=== PATIENT | female | born 1940 | race Caucasian/White ===

== ENCOUNTER → 2024-08-21 07:25 | Outpatient (REF) | payer MEDICARE, BC, SELFPAY ==
[2024-08-21 08:45] LABS: % Basophils 0.2 % (0-2); % Eosinophils 4.1 % (0-6); % Immature Granulocytes 0.3 % (0-0.5); % Monocytes 7.4 % (1.7-9.3); Absolute Eosinophils 0.4 10^3/uL (0-0.7); Absolute Lymphocytes 1.8 10^3/uL (1.2-3.4); Absolute Monocytes 0.7 10^3/uL (0.1-0.6); Absolute Neutrophils 6.5 10^3/uL (1.4-6.5); Hematocrit 37.4 % (37.0-47.0); Hemoglobin 12.3 g/dL (12.0-16.0); Mean Corp Hgb Conc. 32.9 g/dL (33.0-37.0); Mean Corpuscular Hgb 29.6 pg (27.0-31.0); Mean Corpuscular Volume 90.1 fL (81.0-99.0); Mean Platelet Volume 11.6 fL (7.4-10.4); Nucleated Red Blood Cells % 0 %; Platelet Count 222 10^3/uL (130-400); Red Blood Cell Count 4.15 10^6/uL (4.20-5.40); Red Cell Dist. Width 13.7 % (11.5-14.5); White Blood Cell Count 9.3 10^3/uL (4.8-10.8)
[2024-08-21 10:33] LABS: ALT (SGPT) 14 U/L (0-35); AST (SGOT) 27 U/L (14-36); Albumin 4.4 g/dl (3.5-5.0); Alkaline Phosphatase 114 U/L (38-126); Blood Urea Nitrogen 38 mg/dl (7-17); Calcium 10.2 mg/dl (8.4-10.2); Carbon Dioxide 26 mmol/L (22-30); Chloride 101 mmol/L (98-107); Glucose 83 mg/dl (70-99); HDL Cholesterol 78 mg/dl; LDL Cholesterol, Calculated 116 mg/dl; Potassium 4.5 mmol/L (3.5-5.1); Sodium 142 mmol/L (135-145); Total Bilirubin 0.8 mg/dl (0.2-1.3); Total Cholesterol 210 mg/dl (50-199); Total Protein 7.1 g/dl (6.3-8.2); Triglyceride 82 mg/dl (10-149); Very Low Density Lipoprotein 16 mg/dl (0-30); eGFR 40.55
== END ==
LOC: REG 07:25
PROVIDERS: ATTENDING PHYSICIAN Family Medicine
DX: Z00.00 Encounter for general adult medical examination without abnormal findings (principal); Z79.899 Other long term (current) drug therapy; Z79.01 Long term (current) use of anticoagulants
CPT/HCPCS: 36415; 80053; 80061; 85025

== ENCOUNTER 2024-10-04 16:09 | Inpatient (IN) | payer MEDICARE, BC, SELFPAY ==
[2024-10-04 10:59] VITALS: BP 175/97
[2024-10-04 11:00] VITALS: BP 142/81
--- NOTE | 2024-10-04 13:13 | ED.GENMED ---
History of Present Illness
General
Chief Complaint: Fall
Source: patient
Time Seen by Provider: 10/04/24 12:48
History of Present Illness
History of Present Illness:
83-year-old female with past medical history of hypertension presenting to the emergency department for evaluation after she was in the [employer] parking lot when she excellently stumbled falling onto the left side of her body injuring her
left elbow and left lower extremity. Patient states that initially it was only her left foot that hurt her but while she has been in the ER her left hip and knee have started hurting as well. Patient ambulates with a cane for stability and lives
on her own in a two-story house but states she has everything she needs on 1 floor. Patient denies any use of anticoagulants. Denies any head injury, loss consciousness, headache. Did not take thing for pain prior to arrival and is currently
declining anything for pain as well.
Past History
Past History
ED Past Medical History: HTN
ED Past Surgical History: None
Social History
Tobacco: Non-smoker
Alcohol: None
Drug: None
Personal:
Living: alone
Review of Systems
Review of Systems
All Other Systems: ROS reviewed and negative except as documented in HPI and ROS
Phy Exam
Physical Exam
Physical Exam:
GENERAL: Alert , in no apparent distress
EYE: clear conjunctiva b/l
HEAD: NCAT
ENT: o/p clr, mmm.
CARDIAC: Regular rate and rhythm .
LUNGS: Clear breath sounds bilaterally, no acute respiratory distress, no wheezes/rales/rhonchi
ABDOMEN: Soft, without focal tenderness, no r/g, no cvat
NEUROLOGICAL: Alert and oriented
SKIN: Warm and dry, small skin tear over the olecranon without any active bleeding of the left elbow
MUSCULOSKELETAL:LLE: No obvious deformity, erythema, edema, ecchymosis, abrasions or lacerations. Patient has tenderness diffusely to the proximal left hip/femur as well as knee. No focal bony tenderness over the foot or ankle. Extremities
otherwise warm well-perfused and neurovascularly intact. Patient having difficulty performing range of motion at the left hip and knee.
PSYCH: Normal and appropriate interaction.
Scores
Heart Failure Risk
Heart Failure Risk Score: Not Applicable
Heart Score for Chest Pain Patients
STEMI patient?: Not applicable
Withdrawal Assessment of Alcohol
Withdrawal Assessment Completed?: Not applicable
Course
Orders/Labs/Results
Orders:
Orders
10/04/24 11:04
Foot, Left 3 View [CR Foot - Left Min 3 Views] Urgent
Comment:
Reason For Exam: fall
10/04/24 13:01
CR Hip - LT w/wo Pel 2-3 Vw* Urgent
Comment:
Reason For Exam: fall, pain
Include a pelvis x-ray?: Yes
CR Knee - Left 4 Or More View* Urgent
Comment:
Reason For Exam: fall, pain
10/04/24 14:34
CR Femur - Left Min 2 Vw Urgent
Comment:
Reason For Exam: fall, known prox fx
10/04/24 14:48
Type+Screen Urgent
Basic Metabolic Panel Urgent
Complete Blood Count/With Diff Urgent
PTT Urgent
Prothrombin Time Urgent
10/04/24 14:51
Ibuprofen [Motrin] 600 mg PO NOW STA
10/04/24 14:58
Ketorolac [Toradol] 30 mg IV NOW STA
10/04/24 15:42
Admit/Transfer Patient As Directed
Co-Sign Provider:
Level of Care: Inpatient admission
Assign to:: Medical/Surgical
Physician / Group: [email or web address]
Diagnosis: Closed intertrochanteric fracture of left hip
Reason for Hospitalization: Closed intertrochanteric fracture of left hip
Expected length of stay greater than two midnights?: Yes
ELOS- Estimated Length of Stay in days: 3
I certify the patient meets the requirements for IP care: Yes
10/04/24 15:43
Code Status As Directed
Resuscitation Status: Full Code
10/04/24 15:58
ABO2 Urgent
BBK Wristband Number:
Associate notified that ABO2 has been ordered: [id number]
Date: 10/04/24
Time: 15:03
Clerk Rating ID: [id number]
10/04/24 17:15
Acetaminophen [Tylenol] 650 mg PO Q4HWA
Magnesium Hydroxide [Milk of Magnesia] 30 ml PO DAILYPRN PRN
Oxycodone [Roxicodone] 5 mg PO Q4HPRN PRN
Tamsulosin [Flomax] 0.4 mg PO DAILYPRN PRN
10/04/24 17:15
Activity As Directed
Activity Level: With Assistance
Bladder Scan As Directed
Follow Bladder Retention/Intermittent Cath Algorithm?: Yes
PRN if no void in __ hours: 6
Comment: if not voiding 6 hrs upon arrival to floor, bladder scan & follow algorithm
Intake/ Output As Directed
Frequency: Per unit guidelines
Pneumatic Compression Sleeves As Directed
Type: Knee high
Straight Cath As Directed
Frequency: Per Retention Algorithm
Additional Instructions: straight cath as needed per acute urinary retention algorithm for 24 hrs
Additional Instructions: for bladder scan greater than 400 mL
Vital Signs As Directed
Frequency: Per unit guidelines
DX Deep Vein Thrombosis Video Routine
10/04/24 20:00
Docusate Sodium [Colace] 100 mg PO BID
Sennosides [Senokot] 17.2 mg PO BID
10/04/24 22:00
Candesartan Cilexetil [Atacand] 32 mg PO HS
Abnormal Lab Results
10/04/24
14:48
WBC 20.6 H 10^3/uL
(4.8-10.8)
RBC 3.84 L 10^6/uL
(4.20-5.40)
Hgb 11.4 L g/dL
(12.0-16.0)
Hct 34.1 L %
(37.0-47.0)
MPV 11.4 H fL
(7.4-10.4)
Abs Immat Gran (auto) 0.1 H 10^3/uL
(0-0.05)
Absolute Neuts (auto) 19.0 H 10^3/uL
(1.4-6.5)
Absolute Lymphs (auto) 0.5 L 10^3/uL
(1.2-3.4)
Absolute Monos (auto) 1.0 H 10^3/uL
(0.1-0.6)
Neutrophils % 92.1 H %
(42.2-75.2)
Lymphocytes % 2.6 L %
(20.5-51.1)
BUN 42 H mg/dl
(7-17)
Creatinine 1.2 H mg/dL
(0.6-1.0)
Glucose 113 H mg/dl
(70-99)
Crossmatch IS Only See Detail
10/04/24 14:48
10/04/24 14:48
Vital Signs
Initial and Last Documented VS:
Initial Vital Signs
Temp Pulse Resp BP Pulse Ox
98.1 F 109 16 175/97 98
10/04/24 10:59 10/04/24 10:59 10/04/24 10:59 10/04/24 10:59 10/04/24 10:59
Last Documented Vital Signs
Temp Pulse Resp BP Pulse Ox
99.4 F 102 18 161/85 97
10/07/24 12:46 10/07/24 12:46 10/07/24 12:46 10/07/24 12:46 10/07/24 12:46
MDM/Problems Addressed
Differential Diagnosis Includes:
Accidental slip and fall, no symptoms to suggest syncope. Fracture, contusion, sprain
MDM/Problems Addressed:
83-year-old female presenting to the ER for evaluation following accidental slip and fall resulting in left lower extremity pain. Patient initially noted pain to her left foot only on arrival. X-ray was performed of this and does not show any
fracture. At time of my exam patient is now noting left hip and knee pain. Will obtain x-rays of this. Patient declining anything for pain. Reassessment following.
*Radiology
Radiology exam reviewed: preliminary read by ED provider (no foot fx)
*Pulse Oximetry
Patient hypoxic: no
*Critical Care Note
Total Time (30-74mins, 75-104mins- exclusive of procedures): Not Applicable
Patient Management
Discussion with other providers: Hospitalist and Wrecking Mechanic
Escalation/DeEscalation of care consider admission/obs:
Patient's left hip x-ray does show a left intertrochanteric hip fracture. Notified orthopedics who will plan for surgery tomorrow. Hospitalist team accepts for continued evaluation and treatment. Patient and daughter updated on the new x-ray
findings and treatment planning. They are in agreement with this plan. Patient remains hemodynamically stable.
ED Attending Note
-
Portions of this chart may have been created with voice recognition software.� Occasional wrong word or��sound alike� substitutions may have occurred due to the inherent limitations of voice recognition software.
Discharge Plan
Departure
Patient Disposition: Admit
Date of Disposition: 10/04/24
Time of Disposition: 14:29
Presentation/result/management discussed w/ accepting MD/DO: Hospitalist
Discharge Problem:
Closed intertrochanteric fracture of left hip
Interventions
Interventions:
*Risk Screen - Suicide Last Done: 10/04/24 10:59
*General Assessment Last Done: 10/04/24 13:27
*Neglect/Abuse Screening Last Done: 10/04/24 10:59
*ED COVID-19 Vaccine History Last Done: 10/04/24 13:27
*Nursing Disposition Last Done: 10/04/24 16:50
ED-Musculoskeletal Assessment Last Done: 10/04/24 13:27
ED- Neurological Assessment Last Done: 10/04/24 13:27
ED-Skin Assessment Last Done: 10/04/24 13:27
Discharge Date and Time
Discharge Date/Time: 10/04/24 16:51
[2024-10-04 15:04] LABS: % Basophils 0.1 % (0-2); % Eosinophils 0.1 % (0-6); % Immature Granulocytes 0.4 % (0-0.5); % Lymphocytes 2.6 % (20.5-51.1); % Monocytes 4.7 % (1.7-9.3); % Neutrophils 92.1 % (42.2-75.2); Absolute Immature Granulocytes 0.1 10^3/uL (0-0.05); Absolute Lymphocytes 0.5 10^3/uL (1.2-3.4); Hematocrit 34.1 % (37.0-47.0); Hemoglobin 11.4 g/dL (12.0-16.0); Mean Corp Hgb Conc. 33.4 g/dL (33.0-37.0); Mean Corpuscular Hgb 29.7 pg (27.0-31.0); Mean Corpuscular Volume 88.8 fL (81.0-99.0); Mean Platelet Volume 11.4 fL (7.4-10.4); Nucleated Red Blood Cells % 0 %; Platelet Count 228 10^3/uL (130-400); Red Blood Cell Count 3.84 10^6/uL (4.20-5.40); Red Cell Dist. Width 13.6 % (11.5-14.5); White Blood Cell Count 20.6 10^3/uL (4.8-10.8)
[2024-10-04 15:05] VITALS: BP 172/111
[2024-10-04 15:09] LABS: PT 13.5 Sec (11.4-14.6)
[2024-10-04 15:10] LABS: APTT 26.5 Sec (23.4-35.0)
[2024-10-04 15:16] LABS: Blood Urea Nitrogen 42 mg/dl (7-17); Calcium 9.8 mg/dl (8.4-10.2); Carbon Dioxide 26 mmol/L (22-30); Chloride 103 mmol/L (98-107); Glucose 113 mg/dl (70-99); Potassium 4.2 mmol/L (3.5-5.1); Sodium 137 mmol/L (135-145); eGFR 44.64
[2024-10-04] MEDS: TORADOL 30 MG IV (15:29)
--- NOTE | 2024-10-04 15:31 | HPS.HSE ---
Family Physician
-
Family Physician: Karan Dominguez
Chief Complaint
-
Fall and Lt Hip, Lt knee and Lt foot pain
History of Present Illness
HPI
83F HX HTN, CKD3b seen at ER for evaluation
- s/p Fall in the [employer] parking lot when she was stumbled falling onto the left side of her body
- sustained injuring her left elbow and left lower extremity and left foot
- reports pain at left hip and knee
- At baseline she ambulates with a cane for stability
- lives on her own in a two-story house but states she has everything she needs on 1 floor.
Patient denies any use of anticoagulants.
Denies any head injury, loss consciousness, headache.
Currently declining anything for pain as well.
Medical History
Past Medical History
Past Medical History: Reports HTN
Past Surgical History: Reports None
Social History
Tobacco: Non-smoker
Alcohol: None
Drug: None
Personal:
Living: Alone
Family History
Family History: Not pertinent
Allergies / Home Medications
Allergies reflects when Allergies were last updated in [employer]
Home Medications with original date entered in [employer]
Allergy/Medication List:
Allergies
Allergy/AdvReac Type Severity Reaction Status Date / Time
iodine Allergy Nausea Verified 10/04/24 11:05
Home Medications
candesartan 32 mg tablet 32 mg PO HS 10/04/24
Review of Systems
-
Constitutional: Reports No Symptoms
EENT: Reports No Symptoms
Respiratory: Reports No Symptoms
Cardiac: Reports No Symptoms
Abdomen/GI: Reports No Symptoms
: Reports No Symptoms
Skin: Reports No Symptoms
Neurological: Reports No Symptoms
Endocrine: Reports No Symptoms
Hematologic/Lymphatic: Reports No Symptoms
Psych: Reports No Symptoms
Physical Exam
Vital Signs
Vital Signs
Temp Pulse Resp BP Pulse Ox
98.1 F 109 16 175/97 98
10/04/24 10:59 10/04/24 10:59 10/04/24 10:59 10/04/24 10:59 10/04/24 10:59
Physical Exam
General: Well Developed, Well Nourished and No Apparent Distress
HEENT: NormoCephalic, Moist mucous membranes, Atraumatic and Other (wear hearing AID in both ears, [place] )
Respiratory: Clear
Cardiac: S1/S2 and Regular Rhythm; No Murmur or Rub
GI: Soft, Non Tender, Non Distended and Normal Bowel Sounds; No Organomegaly
Rectal: Deferred by Provider
Musculoskeletal: Other ( No obvious deformity, erythema, edema, ecchymosis, abrasions or lacerations. Patient has tenderness diffusely to the proximal left hip/femur as well as knee. No focal bony tenderness over the foot or ankle. Extremities
otherwise warm well-perfused and neurovascular intact. Patient having diff)
Skin: No Rash
Neuro: Nonfocal/grossly intact
Laboratory Results
-
10/04/24 14:48
10/04/24 14:48
Laboratory Results
PT 13.5 Sec (11.4-14.6) 10/04/24 14:48
INR 1.00 10/04/24 14:48
APTT 26.5 Sec (23.4-35.0) 10/04/24 14:48
Data Reviewed
-
Diagnostic Radiology: Report Reviewed by me
Lab Data: Labs Reviewed by me
Impression/Plan
-
Vital Signs
Temp Pulse Resp BP Pulse Ox
98.1 F 109 16 175/97 98
10/04/24 10:59 10/04/24 10:59 10/04/24 10:59 10/04/24 10:59 10/04/24 10:59
Laboratory Tests
08/21/24 10/04/24
07:41 14:48
WBC 20.6 H
Hgb 12.3 11.4 L
Plt Count 228
INR 1.00
Potassium 4.2
BUN 42 H
Creatinine 1.3 H 1.2 H
eGFR 40.55 44.64
XR 3 views of the pelvis and left hip, and 4 views of the left knee
1. Intertrochanteric left proximal femur fracture.
2. No radiographic evidence for an acute osseous abnormality of the left knee.
XR 3 views of the LEFT foot
There is diffuse osteopenia.
No acute fractures, dislocations, or suspicious bony abnormalities appreciated.
Scattered degenerative changes within the interphalangeal joints. No gross soft tissue abnormality.
NO PRIOR hospitalist admission:
ASSESSMENT & PLAN
Closed intertrochanteric fracture of left hip
S/P mechanical fall
Benefits of ORIF outweigh current surgical risks
Medically acceptable for ORIF
- Fx set protocol for PRN Analgesia
- BW regime
- NPO after MN and OR per Ortho in AM
- Ortho consulted
Systolic HTN due to acute anxiety due to acute hip Fx
Benign HTN
-c/w Candesartan 32mg HS
- Observe BP
CKD3a: stable
Baseline Cr 1.2 - 1.3
baseline e GFR 40 -44
- observe Cr in AM
- avoid NSAIDs
Hearing impairment
- she wears hearing AID in both ears
DVT Px: SCD
Code: Full code
IP MS
[2024-10-04 16:00] VITALS: BP 171/108
[2024-10-04 17:12] VITALS: BP 176/76
--- NOTE | 2024-10-04 17:40 | CON.ORTHO ---
Consultation - Orthopedics
History
HPI: 83-year-old female presented to the emergency department status post mechanical fall with complaints of left hip pain and inability to bear weight. She was subsequently diagnosed with a left intertrochanteric femur fracture. She was admitted
to the hospital service and orthopedics is consulted for further evaluation and treatment. This evening patient reports pain will localized to the left hip and groin area. Pain is made worse with palpation affected area and with attempted motion
of left hip. She reports that she was shopping when she tripped and fell. She reports that she lives alone and is quite independent. She does use a cane for ambulatory assistance.
Allergies / Home Medications
Past medical history: Hypertension
Past surgical history: None reported
Social history: Non-smoker, lives alone at home,
Family history: Not pertinent
Allergy/AdvReac Type Severity Reaction Status Date / Time
iodine Allergy Nausea Verified 10/04/24 11:05
�Medication �Instructions �Recorded
candesartan 32 mg tablet 32 mg PO HS 10/04/24
Vital Signs / Lab Results
Temp Pulse Resp BP Pulse Ox
98.0 F 123 22 176/76 98
10/04/24 17:12 10/04/24 17:12 10/04/24 17:12 10/04/24 17:12 10/04/24 17:12
10/04/24 14:48
10/04/24 14:48
10 point review systems reviewed and negative unless otherwise stated
General: Pleasant, no acute distress at rest supine in bed
Musculoskeletal left lower extremity
Skin intact, no erythema
There is tenderness palpation of the lateral trochanteric flare and groin
Extremity shortened externally rotated
Painful logroll
No ipsilateral palpable knee effusion
Positive EHL, FHL, ankle dorsiflexion, plantarflexion
Brisk cap refill distally
No other areas of bony tenderness palpation crepitation long bones or joints on tertiary exam
Diagnostic studies
X-rays left hip independently viewed by myself radiologist report reviewed. There is evidence of displaced left intertrochanteric femur fracture
Assessment / Plan
83-year-old female status post fall left intertrochanteric femur fracture. I do long detailed discussion the patient regarding diagnosis and treatment options. We discussed both surgical and nonsurgical options. After discussion we mutually
elected to proceed with insertion of left cephalomedullary nail fixation for intertrochanteric femur fracture. We discussed risks benefits and alternatives to surgery. Discussed the usual expected perioperative postoperative course. After
discussion verbal consent was obtained. Will plan to obtain written informed consent prior to procedure
Nonweightbearing left lower extremity
DVT prophylaxis: Please hold in preparation for the OR
N.p.o. at midnight
Medical management per primary team
Plan: 2 OR tomorrow for operative fixation left intertrochanteric femur fracture pending or availability and medical clearance.
[2024-10-04] MEDS: TYLENOL PO ×2 (18:47→23:49)
--- NOTE | 2024-10-04 19:56 | PTCARENOTE ---
pt was received from the emergency room - alert, oriented and verbally responsive. pt can make her needs known and understands when being spoken too. she was concerned about eating at this time even though she was reassured that she could eat before
midnight. patient is currently in bed with her daughter and son-in-law at bedside. pt has call lyle and television remote within reach
[2024-10-04] MEDS: SENOKOT PO (19:58)
[2024-10-04] MEDS: COLACE PO (19:58)
[2024-10-04] MEDS: ATACAND 32 MG PO (20:35)
[2024-10-04] MEDS: TYLENOL 650 MG PO (20:41)
[2024-10-04 23:00] VITALS: BP 142/81
[2024-10-05] VITALS (20 sets, daily range): BP systolic 100–190; BP diastolic 65–106; PULSE 105; O2SAT 98; BMI 18.0
[2024-10-05] MEDS: TYLENOL PO ×3 (03:59→23:05)
[2024-10-05] MEDS: ROXICODONE 5 MG PO ×2 (04:49→21:34)
[2024-10-05] MEDS: COLACE PO (08:19)
[2024-10-05] MEDS: TYLENOL 650 MG PO ×3 (08:19→19:41)
[2024-10-05] MEDS: SENOKOT 17.2 MG PO ×2 (08:20→19:42)
--- NOTE | 2024-10-05 10:44 | OR.RPT ---
Operative Report
Operative Report
Anesthesia Type:
Spinal
Operative Indications:
Left
Intertrochanteric femur fracture
Operative Findings :
Same
Complications:
None
Implants:
Hitchcock gamma nail, 125 degree x 11 mm short nail, 95 mm cephalomedullary nail, 37.5 x 5 mm distal interlocking screw
Procedure and Technique:
Insertion left short cephalomedullary nail
INDICATIONS FOR PROCEDURE:
82-year-old patient presented status post mechanical fall. She was subsequently diagnosed with an intertrochanteric femur fracture. Orthopedics was consulted for further evaluation and treatment. After discussion with the patient and her family,
decision was made to proceed with operative intervention in the form of short cephalomedullary nail. Long discussion was had regarding risks and benefits of procedure. Risks include but are not limited to infection, blood loss, damage to
surrounding structures, persistent pain, loss of function, need for repeat surgery, implant cut out, periprosthetic fracture, DVT/PE and adverse risks of anesthesia. Benefits include early mobilization and fracture stabilization. After discussion
written informed consent was obtained.
OPERATIVE PROCEDURE:
Patient was seen and identified in the preoperative holding area. Operative extremity was marked. Patient was taken to the operating room and provided anesthesia by the anesthesia team. Placed supine on fracture table. Nonoperative extremity was
placed in a scissored position and padded with a gel pad to the central post of the fracture table. Operative extremity was placed in a well-padded fracture boot. Biplanar fluoroscopy confirmed appropriate reduction after axial traction, adduction
and slight internal rotation of the fracture. Operative extremity was then prepped and draped in normal sterile fashion. Timeout was performed again identifying the operative extremity correctly. Preoperative antibiotics were addressed.
Approximately 5 cm incision was made 2 fingerbreadths proximal to the greater trochanter. Sharp dissection was carried through skin and subcutaneous tissues deep fascial layers. Guidepin was then inserted under biplanar fluoroscopic guidance
through the greater trochanter in accordance with the implants operative technique. This was inserted to a depth just distal to the lesser trochanter. Proximal opening reamer was then utilized. A 11 millimeter X 125 degree short cephalomedullary
nail was then inserted to the appropriate depth. Trocar was then inserted through the aiming arm. Sharp dissection was then carried through skin and subcutaneous tissues as well as deep fascial layers. Guidewire was inserted through the trocar
into the femoral neck and head. Appropriate position was confirmed under biplanar fluoroscopy. Attention was made to minimize the tip apex distance. Measurements were obtained for the cephalomedullary screw. Cannulated drill was then drilled to
the appropriate depth followed by the insertion of cannulated cephalomedullary screw. Appropriate final position of the screw within the confines of the femoral neck and head were confirmed again on biplanar fluoroscopy. Setscrew was deployed.
additional trocar was then inserted through the aiming arm for the distal interlocking screw. Sharp dissection was carried through skin, subcutaneous tissues and deep fascial layers. Appropriate length interlocking screw was then drilled and
inserted. Final appropriate positioning was confirmed again on biplanar fluoroscopy. Satisfied with the extent of surgery, wounds were copiously irrigated with normal saline solution and closed in a layered fashion utilizing 0 Vicryl for deep
fascial layer, 2-0 Vicryl for subcu cutaneous layer and speedy for skin. Aquacel dressings were applied. Anesthesia was reversed and patient was taken to the operating room in stable condition.
Postoperative plans include weightbearing to patient's tolerance operative extremity. Recommend DVT prophylaxis consisting of Lovenox renally dosed daily x 28 days.
Disposition:
PACU stable condition
--- NOTE | 2024-10-05 12:25 | W.PN.HOSP.TC ---
Today's Communication/Plan
-
see plan
Assessment / Plan
Assessment / Plan
Gen: NAD, AAOx3.
Eyes: EOMI, PERRLA, no scleral icterus.
Neck: supple.
CV: RRR, +S1/S2, no m/r/g.
Resp: CTAB, no rales, wheezes, or rhonchi.
Abd: +BS, soft, NT, ND
Skin: No rashes.
Neuro: CN 2-12 intact, non-focal.
Psych: Normal mood and affect.
Acute closed intertrochanteric fracture of left hip due to acute mechanical fall:
-s/p Insertion left short cephalomedullary nail on 10/05/24
-PT/OT
-check BMP and CBC in AM
Other problems:
Essential hypertension: cont Atacand
CKD3b
Family updated at bedside.
FULL/Lovenox
Anticipated Discharge: Within 24 hours
Subjective/Interval History
-
Date of Service: October 05, 2024
No acute complaints.
Objective Data
-
Vital Signs:
Vital Signs
Temp Pulse Resp BP Pulse Ox
97.9 F 122 20 129/85 100
10/05/24 11:45 10/05/24 12:15 10/05/24 12:15 10/05/24 12:15 10/05/24 12:15
I&O
10/04/24 10/05/24 10/06/24
06:59 06:59 06:59
Intake Total 150 / 150
Output Total 800 / 800
Balance -800 / -800 150 / 150
--- NOTE | 2024-10-05 13:24 | PTCARENOTE ---
Addendum while in PACU.. HR has been variable anywhere from 80-140 (while eating), baseline tachy noted since admit, patient is asymptomatic. Spoke with Dr Zepeda no new order for remote telemetry. Report given to 2S RN. Patient stable for transfer to
med-surg.
[2024-10-05] MEDS: NSS 1000 IV (16:38)
[2024-10-05] MEDS: ZOFRAN 4 MG IV (16:40)
[2024-10-05] MEDS: ANCEF 5 IV (16:40)
--- NOTE | 2024-10-05 19:12 | PTCARENOTE ---
Did speak with Dr. Zepeda regarding HR up into 140's NSR in PACU, does not want tele.
[2024-10-05] MEDS: COLACE 100 MG PO (19:41)
[2024-10-05] MEDS: ATACAND 32 MG PO (21:34)
[2024-10-06] VITALS (14 sets, daily range): BP systolic 118–157; BP diastolic 62–82
[2024-10-06] MEDS: ANCEF 5 IV (02:28)
[2024-10-06] MEDS: ROXICODONE 5 MG PO ×2 (02:49→08:53)
[2024-10-06] MEDS: TYLENOL 650 MG PO ×4 (02:50→19:59)
[2024-10-06 07:01] LABS: Blood Urea Nitrogen 51 mg/dl (7-17); Calcium 8.5 mg/dl (8.4-10.2); Carbon Dioxide 25 mmol/L (22-30); Chloride 101 mmol/L (98-107); Estimated Creatinine Clearance 19 ml/min; Glucose 98 mg/dl (70-99); Potassium 4.6 mmol/L (3.5-5.1); Sodium 134 mmol/L (135-145); eGFR 31.61
[2024-10-06 08:17] LABS: Hematocrit 19.6 % (37.0-47.0); Hemoglobin 6.6 g/dL (12.0-16.0); Mean Corp Hgb Conc. 33.7 g/dL (33.0-37.0); Mean Corpuscular Hgb 29.9 pg (27.0-31.0); Mean Corpuscular Volume 88.7 fL (81.0-99.0); Mean Platelet Volume 11.7 fL (7.4-10.4); Platelet Count 201 10^3/uL (130-400); Red Blood Cell Count 2.21 10^6/uL (4.20-5.40); Red Cell Dist. Width 13.8 % (11.5-14.5); White Blood Cell Count 14.4 10^3/uL (4.8-10.8)
[2024-10-06 08:26] LABS: Blood Urea Nitrogen 55 mg/dl (7-17); Calcium 8.5 mg/dl (8.4-10.2); Carbon Dioxide 24 mmol/L (22-30); Chloride 101 mmol/L (98-107); Estimated Creatinine Clearance 21 ml/min; Glucose 102 mg/dl (70-99); Potassium 4.7 mmol/L (3.5-5.1); Sodium 134 mmol/L (135-145); eGFR 34.15
--- NOTE | 2024-10-06 08:31 | W.PN.HOSP.TC ---
Today's Communication/Plan
-
see bold
Assessment / Plan
Assessment / Plan
Gen: NAD, awake and alert, appears chronically ill malnourished
Eyes: EOMI, PERRLA, no scleral icterus.
Neck: supple.
CV: Remains RRR, +S1/S2, no m/r/g.
Resp: Remains CTAB, no rales, wheezes, or rhonchi.
Abd: +BS, soft, NT, ND
Skin: No rashes. Left hip dressings with some sanguinous drainage.
Neuro: CN 2-12 intact, non-focal.
Psych: Normal mood and affect.
Acute closed intertrochanteric fracture of left hip due to acute mechanical fall:
-s/p Insertion left short cephalomedullary nail on 10/05/24
-acute blood loss anemia due to surgery, transfuse 2U pRBCs
-PT/OT
VEENA on CKD3b:
-transfuse pRBCs
Other problems:
Essential hypertension: cont Atacand
FULL/SCDs (with Hb 6.6)
Anticipated Discharge: 24 - 48 hours
Subjective/Interval History
-
Date of Service: October 06, 2024
No new complaints.
Objective Data
-
Labs:
Laboratory Results
10/06/24 10/06/24
06:22 07:31
WBC Cancelled 14.4 H
Hgb Cancelled 6.6 L* D
Hct Cancelled 19.6 L*
Plt Count Cancelled 201
Sodium 134 L 134 L
Potassium 4.6 4.7
Chloride 101 101
Carbon Dioxide 25 24
BUN 51 H 55 H
Creatinine 1.6 H 1.5 H
Glucose 98 102 H
Calcium 8.5 8.5
Vital Signs:
Vital Signs
Temp Pulse Resp BP Pulse Ox
97.9 F 109 16 128/65 99
10/06/24 07:10 10/06/24 07:10 10/06/24 07:10 10/06/24 07:10 10/06/24 07:10
I&O
10/05/24 10/06/24 10/07/24
06:59 06:59 06:59
Intake Total 1999
Output Total 800 / 800
Balance -800 / -800 1999
[2024-10-06] MEDS: SENOKOT 17.2 MG PO ×2 (08:51→19:59)
[2024-10-06] MEDS: COLACE 100 MG PO (08:52)
--- NOTE | 2024-10-06 09:17 | PTCARENOTE ---
L Orif POD 1, her HG on ralph 6.6 (11.4) 128/65 (109)99% 97.9, minimal additional shadowing on lower dressing, upper dressing clear. leg not tense edema present, + pedals, movement and sensation. 1 liter of IVF post-op given. AOx3...notified 'klaus
Elian. 2u PRBC
--- NOTE | 2024-10-06 11:09 | W.PN.ORTHO ---
Today's Communication / Plan
-
83-year-old female postop day 1 status post left cephalomedullary nail insertion for peritrochanteric femur fracture
Weightbearing as tolerated left lower extremity
PT OT
Pain control
DVT prophylaxis: Recommend Lovenox x 28 days daily renally dosed
Continue with 2 units packed red blood cells, repeat H&H, transfuse as indicated
Plan to follow-up on an outpatient basis with myself in 2 to 3 weeks for repeat evaluation with planned removal of speedy
Subjective
.
.:
Patient resting comfortably. No acute overnight events.
Vital Signs and Labs
.
Vital Signs and Labs:
Lab Results
10/06/24 07:31
10/06/24 07:31
Temp Pulse Resp BP Pulse Ox
97.9 F 107 18 141/69 99
10/06/24 10:22 10/06/24 10:22 10/06/24 10:22 10/06/24 10:22 10/06/24 10:16
PT 13.5 Sec (11.4-14.6) 10/04/24 14:48
INR 1.00 10/04/24 14:48
Physical Exam
-
Musculoskeletal left lower extremity
Mild to moderate bloody drainage on dressing
Moderate swelling thigh
Positive EHL, FHL, ankle dorsiflexion, plantarflexion
Brisk cap refill
--- NOTE | 2024-10-06 13:17 | CM ---
Patient seen at bedside. Patient s/p hip surgery. Patient stated that she lives alone in a 2 story home but only uses the first floor. Patient has a cane but no other DME. Patient stated that her PCP is Dr. Dominguez and she uses the [facility] for
pharmacy needs. Patient plan is to return home with VN but she agreed to see what she was able to do with therapy today. CM will return to review options. CM will continue to follow for discharge planning needs.
Plan; home with VN vs SNF pending functional assessment recommendations.
--- NOTE | 2024-10-06 15:36 | PTCARENOTE ---
pt received 2U PRBC's for HG 6.6, no transfusion reaction. However IV began leaking and infiltrated. Replaced with 20g in upper arm
--- NOTE | 2024-10-06 19:16 | PTCARENOTE ---
Spoke with daughter Sri, she wanted CM and staff to know pt does not live on first floor, she sleeps upstairs, bathroom shower is upstairs, only toliet downstairs. They do not feel home with VN is safe.She would like her to go to a rehab,
preferably [facility], did discuss there are parameters. Asked family to start exploring facilities so they could give list to CM tomorrow. Family would like her to return to their home after rehab. Pt thus far has not gotten OOB, initially able to stand.
POD#2 Hg 6.6 transfusion. Told family will remain in hospital to medically stable not based on mobility.
[2024-10-06] MEDS: TYLENOL PO (19:49)
[2024-10-06] MEDS: COLACE PO (19:58)
[2024-10-06] MEDS: ATACAND 32 MG PO (21:17)
[2024-10-07] MEDS: TYLENOL 650 MG PO ×2 (00:51→11:20)
[2024-10-07] MEDS: ZOFRAN 4 MG IV (01:26)
[2024-10-07] MEDS: TYLENOL PO ×2 (04:50→08:00)
[2024-10-07 07:27] LABS: Blood Urea Nitrogen 56 mg/dl (7-17); Calcium 8.7 mg/dl (8.4-10.2); Carbon Dioxide 24 mmol/L (22-30); Chloride 104 mmol/L (98-107); Estimated Creatinine Clearance 24 ml/min; Glucose 80 mg/dl (70-99); Potassium 4.4 mmol/L (3.5-5.1); Sodium 135 mmol/L (135-145); eGFR 40.55
[2024-10-07 07:33] LABS: Hematocrit 27.1 % (37.0-47.0); Hemoglobin 9.7 g/dL (12.0-16.0); Mean Corp Hgb Conc. 35.8 g/dL (33.0-37.0); Mean Corpuscular Hgb 30.6 pg (27.0-31.0); Mean Corpuscular Volume 85.5 fL (81.0-99.0); Mean Platelet Volume 11.6 fL (7.4-10.4); Platelet Count 159 10^3/uL (130-400); Red Blood Cell Count 3.17 10^6/uL (4.20-5.40); Red Cell Dist. Width 14.2 % (11.5-14.5); White Blood Cell Count 11.1 10^3/uL (4.8-10.8)
--- NOTE | 2024-10-07 07:51 | W.PN.HOSP.TC ---
Addendum entered and electronically signed by Nadeem Zepeda MD 10/07/24 14:08:
Underweight and cachectic
Addendum entered and electronically signed by Nadeem Zepeda MD 10/07/24 11:12:
Total time spent on d/c = 33 min. This included today's physical exam, progress note, review of laboratory and diagnostic data, preparation of discharge documents and prescriptions, and discussions about the pt's hospital course and discharge plan
with the patient and other medical education coordinator involved in the patient's care.
Original Note:
Today's Communication/Plan
-
see bold
Assessment / Plan
Assessment / Plan
Gen: NAD, awake and alert, appears chronically ill malnourished
Eyes: EOMI, PERRLA, no scleral icterus.
Neck: supple.
CV: continues to remain RRR, +S1/S2, no m/r/g.
Resp: continues to remain CTAB, no rales, wheezes, or rhonchi.
Abd: +BS, soft, NT, ND
Skin: No rashes.
Neuro: CN 2-12 intact, non-focal.
Psych: Normal mood and affect.
Acute closed intertrochanteric fracture of left hip due to acute mechanical fall:
-s/p Insertion left short cephalomedullary nail on 10/05/24
-acute blood loss anemia due to surgery, s/p 2U pRBCs on 10/06/24
-PT/OT
Other problems:
VEENA on CKD3b: resolved with pRBCs
Other problems:
Essential hypertension: cont [place]
FULL/SCDs (with anemia as above)
Medically cleared for discharge. Case management aware.
Anticipated Discharge: Today
Subjective/Interval History
-
Date of Service: October 07, 2024
No new complaints.
Objective Data
-
Labs:
Laboratory Results
10/07/24
05:35
WBC 11.1 H
Hgb 9.7 L D
Hct 27.1 L
Plt Count 159 D
Sodium 135
Potassium 4.4
Chloride 104
Carbon Dioxide 24
BUN 56 H
Creatinine 1.3 H
Glucose 80
Calcium 8.7
Vital Signs:
Vital Signs
Temp Pulse Resp BP Pulse Ox
98 F 86 18 140/75 99
10/06/24 22:51 10/06/24 22:51 10/06/24 22:51 10/06/24 22:51 10/06/24 22:51
I&O
10/06/24 10/07/24 10/08/24
06:59 06:59 06:59
Intake Total 1999 780 / 780
Balance 1999 780 / 780
[2024-10-07 08:00] VITALS: BP 126/75
--- NOTE | 2024-10-07 10:01 | CM ---
Addendum entered by Anna Vargas 10/07/24 11:06:
Plan - Transfer to [facility]
R -[phone]
F - [phone]
Addendum entered by Anna Vargas 10/07/24 10:46:
Accepted at [facility] - can accept today
Discussed with pts family at bedside - agreeable to plan
Given IMM
Plan - transfer to [facility]
Original Note:
Pt medically ready for discharge per Dr Zepeda
Met with pt - discussed rehab options - pt prefers [facility] or [facility]
Will send referral in [facility]
Plan - SNF when bed obtained
[2024-10-07] MEDS: COLACE 100 MG PO (11:19)
[2024-10-07] MEDS: SENOKOT PO ×2 (11:19→11:35)
[2024-10-07 12:46] VITALS: BP 161/85
--- NOTE | 2024-10-07 13:07 | PN.CDI ---
CDI
- -
CDI:
Physician Documentation Request
Admit Date: 10/04/24 16:09
Dear Doctor Duane,
Please review the following and provide your response in the progress notes.
Clinical Indicators:
Height: 5 ft 3 .5 in
Weight:103 lb 6.4 oz
BMI:18.0
Other Clinical Notes:
Nutrition consult 10/05, ' CBW (10/05) 103lb 6.4oz BMi 18 underwt/ht...'
If possible, please provide an associated diagnosis related to the abnormal BMI, such as:
BMI < or = to 19
Underweight
Cachectic
- Other
Use of terms such as suspected, likely, concern for, or probable (associated with a specific diagnosis that is being evaluated, monitored, or treated as if it exists) are acceptable and can be coded in the inpatient setting, when documented at the
time of discharge.
Thank you,
Shannan Yang RN
CDI Specialist
[facility]
Please use your independent medical judgment in providing your response.
--- NOTE | 2024-10-07 13:14 | W.DCSUMMARY ---
Discharge Summary
Discharge Data
Date of Admission: 10/04/24
Date of Discharge: 10/07/24
-
Pending Results: No
Hospital Course
Primary diagnoses:
Acute closed intertrochanteric fracture of left hip due to acute mechanical fall s/p Insertion left short cephalomedullary nail on 10/05/24
Acute blood loss anemia
Acute kidney injury on chronic kidney disease stage 3b
Secondary diagnoses:
Essential hypertension
Consults:
Orthopedics
Imaging:
L hip and knee Xray:
1. Intertrochanteric left proximal femur fracture.
2. No radiographic evidence for an acute osseous abnormality of the left knee.
Hospital course: 83-year-old female presented with a fall resulting in a left intertrochanteric proximal femur fracture as outlined in the H&P done on admission. The patient underwent insertion left short cephalomedullary nail on 10/05/24 and
tolerated the procedure well. She received 2 units of packed red blood cells for acute blood loss anemia related to surgery. She was discharged in medically stable condition
Discharge Plan
-
Patient Disposition: Fpc/SNF
Discharge Diagnosis/Procedures: Acute closed intertrochanteric fracture of left hip due to acute mechanical fall s/p Insertion left short cephalomedullary nail on 10/05/24, acute blood loss anemia
Condition: Good
Diet: No restrictions
Activity: With assistance
Driving Restrictions: Not until seen by your Dr
Blood Work: BMP and CBC in 3 days
Referrals:
Karan Dominguez MD [Family Provider] - in less than 1 week
Prescriptions:
New
sennosides [Senna Laxative] 8.6 mg Tablet
17.2 mg PO BID Qty: 0 0RF
acetaminophen 325 mg Tablet
650 mg PO Q4HWA Qty: 0 0RF
docusate sodium 100 mg Capsule
100 mg PO BID Qty: 0 0RF
Continued
candesartan 32 mg Tablet
32 mg PO HS
Discharge Orders:
Discharge Patient (As Directed); Ordered 10/07/24
Ordered By: Nadeem Zepeda
Discharge Date and Time
Print Language: GREEK
== END 2024-10-07 12:47 | DRG 481 ==
LOC: 2 SOUTH 16:09
PROVIDERS: Physician Assistant Medical; ADMITTING PHYSICIAN Internal Medicine; ATTENDING PHYSICIAN Internal Medicine; EMERGENCY PHYSICIAN Emergency Medicine; FAMILY PHYSICIAN Family Medicine; OTHER PHYSICIAN Orthopaedic Surgery
PROC: 0QS604Z Reposition Right Upper Femur with Internal Fixation Device, Open Approach (ICD-10-PCS; 2024-10-05)
DX: S72.142A Displaced intertrochanteric fracture of left femur, initial encounter for closed fracture (principal); D62 Acute posthemorrhagic anemia; N17.9 Acute kidney failure, unspecified; R64 Cachexia; Z68.1 Body mass index [BMI] 19.9 or less, adult; W01.0XXA Fall on same level from slipping, tripping and stumbling without subsequent striking against object, initial encounter; N18.32 Chronic kidney disease, stage 3b; I12.9 Hypertensive chronic kidney disease with stage 1 through stage 4 chronic kidney disease, or unspecified chronic kidney disease; Z91.041 Radiographic dye allergy status; H91.90 Unspecified hearing loss, unspecified ear; Z97.4 Presence of external hearing-aid
CPT/HCPCS: 73502; 73552; 73564; 73630; 76000; 80048; 85025; 85027; 85610; 85730; 86850; 86900; 86901; 86920; 96374; 97162; 97166; 99284; C1713; P9016

== ENCOUNTER → 2024-10-11 09:11 | Outpatient (REF) | payer OTHER, MEDICARE, BC, SELFPAY ==
[2024-10-11 11:21] LABS: % Basophils 0.2 % (0-2); % Eosinophils 2.2 % (0-6); % Immature Granulocytes 0.6 % (0-0.5); % Lymphocytes 5.6 % (20.5-51.1); % Monocytes 7.9 % (1.7-9.3); % Neutrophils 83.5 % (42.2-75.2); Absolute Eosinophils 0.3 10^3/uL (0-0.7); Absolute Immature Granulocytes 0.1 10^3/uL (0-0.05); Absolute Lymphocytes 0.7 10^3/uL (1.2-3.4); Absolute Neutrophils 10.7 10^3/uL (1.4-6.5); Hematocrit 27.8 % (37.0-47.0); Hemoglobin 8.9 g/dL (12.0-16.0); Mean Corpuscular Volume 93.6 fL (81.0-99.0); Mean Platelet Volume 11.3 fL (7.4-10.4); Nucleated Red Blood Cells % 0 %; Platelet Count 237 10^3/uL (130-400); Red Blood Cell Count 2.97 10^6/uL (4.20-5.40); Red Cell Dist. Width 14.2 % (11.5-14.5); White Blood Cell Count 12.9 10^3/uL (4.8-10.8)
[2024-10-11 11:30] LABS: Blood Urea Nitrogen 36 mg/dl (7-17); Calcium 9.2 mg/dl (8.4-10.2); Carbon Dioxide 26 mmol/L (22-30); Chloride 102 mmol/L (98-107); Glucose 86 mg/dl (70-99); Potassium 3.9 mmol/L (3.5-5.1); Sodium 137 mmol/L (135-145); eGFR 55.55
== END ==
LOC: OLABP 09:11
PROVIDERS: ATTENDING PHYSICIAN Family Medicine
DX: N17.9 Acute kidney failure, unspecified (principal); N18.30 Chronic kidney disease, stage 3 unspecified; I10 Essential (primary) hypertension; J44.9 Chronic obstructive pulmonary disease, unspecified
CPT/HCPCS: 36415; 80048; 85025

== ENCOUNTER → 2024-10-26 11:22 | Outpatient (REF) | payer OTHER, MEDICARE, BC, SELFPAY ==
[2024-10-26 11:54] LABS: % Basophils 0.4 % (0-2); % Eosinophils 5.1 % (0-6); % Immature Granulocytes 0.4 % (0-0.5); % Lymphocytes 10.9 % (20.5-51.1); % Monocytes 7.8 % (1.7-9.3); % Neutrophils 75.4 % (42.2-75.2); Absolute Eosinophils 0.3 10^3/uL (0-0.7); Absolute Lymphocytes 0.6 10^3/uL (1.2-3.4); Absolute Monocytes 0.4 10^3/uL (0.1-0.6); Absolute Neutrophils 4.2 10^3/uL (1.4-6.5); Hematocrit 29.9 % (37.0-47.0); Hemoglobin 9.3 g/dL (12.0-16.0); Mean Corp Hgb Conc. 31.1 g/dL (33.0-37.0); Mean Corpuscular Hgb 29.7 pg (27.0-31.0); Mean Corpuscular Volume 95.5 fL (81.0-99.0); Mean Platelet Volume 11.1 fL (7.4-10.4); Nucleated Red Blood Cells % 0 %; Platelet Count 312 10^3/uL (130-400); Red Blood Cell Count 3.13 10^6/uL (4.20-5.40); Red Cell Dist. Width 14.3 % (11.5-14.5); White Blood Cell Count 5.5 10^3/uL (4.8-10.8)
[2024-10-26 12:01] LABS: Blood Urea Nitrogen 29 mg/dl (7-17); Calcium 8.9 mg/dl (8.4-10.2); Carbon Dioxide 25 mmol/L (22-30); Chloride 101 mmol/L (98-107); Glucose 80 mg/dl (70-99); Potassium 4.4 mmol/L (3.5-5.1); Sodium 134 mmol/L (135-145); eGFR 44.64
== END ==
LOC: OLABP 11:22
PROVIDERS: ATTENDING PHYSICIAN Family Medicine
DX: N18.30 Chronic kidney disease, stage 3 unspecified (principal); I10 Essential (primary) hypertension; J44.9 Chronic obstructive pulmonary disease, unspecified
CPT/HCPCS: 36415; 80048; 85025

== ENCOUNTER → 2025-02-14 10:39 | Outpatient (REF) | payer MEDICARE, BC, SELFPAY | LOC: RAD 10:39 | PROVIDERS: ATTENDING PHYSICIAN Family Medicine | DX: M80.00XD Age-related osteoporosis with current pathological fracture, unspecified site, subsequent encounter for fracture with routine healing (principal); M81.0 Age-related osteoporosis without current pathological fracture | CPT/HCPCS: 77080 ==